=== PATIENT | male | born 1990 | race Asian ===

== ENCOUNTER 2019-11-01 12:45 | Emergency (ER) | payer MEDICAID ==
[~2019-11-01] VITALS: Ht 170.2 cm; Wt 77.0 kg
[2019-11-01] MEDS ORDERED: ACETAMINOPHEN 325MG TABLET PO STA (13:26)
[2019-11-01] MEDS ORDERED: SODIUM CHLORIDE 0.9% 1,000 ML IV ONE (13:26)
[2019-11-01] MEDS ORDERED: KETOROLAC 30MG/ML VIAL IV STA (13:26)
[2019-11-01 14:08] LABS: BASOPHILS % 0.5 % (0.0-2.0); EOSINOPHILS % 0.6 % (0.0-5.0); LYMPHOCYTES % 22.6 % (20.0-50.0); MEAN CORPUSCULAR HEMOGLOBIN 29.4 pg (28.0-32.0); MEAN CORPUSCULAR VOLUME 86.1 fL (80.0-94.0); MEAN PLATELET VOLUME 6.4 fl (7.4-10.4); MONOCYTES % 7.2 % (2.0-8.0); NEUTROPHILS % 69.1 % (40.0-76.0); PLATELET 226 x1000/uL (130-400); RED BLOOD CELL COUNT 4.42 mill/uL (4.7-6.1); RED CELL DISTRIBUTION WIDTH 12.9 % (11.6-14.6)
[2019-11-01 14:15] LABS: CHLORIDE 108 mEq/L (98-107)
[2019-11-01] MEDS ORDERED: IOHEXOL-300 100 ML BOTTLE ONE (14:48)
[2019-11-01] MEDS ORDERED: DOXYCYCLINE HYCLATE 100MG CAPSULE PO ONE (15:30)
[2019-11-01] MEDS ORDERED: CEFTRIAXONE SODIUM 250 MG/VIAL IM ONE (15:30)
[2019-11-01 16:11] LABS: CLARITY URINE CLEAR (CLEAR); COLOR URINE YELLOW (YELLOW); KETONES URINE NEGATIVE (NEGATIVE); LEUKOCYTE ESTERASE URINE NEGATIVE (NEGATIVE); NITRITE URINE NEGATIVE (NEGATIVE); OCCULT BLOOD URINE NEGATIVE (NEGATIVE); PH URINE 6.5 (4.5-8.0); PROTEIN URINE NEGATIVE (NEGATIVE); SPECIFIC GRAVITY URINE 1.042 (1.005-1.030)
[2019-11-01 16:35] VITALS: BP 121/85
[2019-11-04 04:07] LABS: NEISSERIA GONORRHOEAE NAA Negative (Negative)
[2019-11-06 04:10] LABS: *HIV-1 RNA BY PCR 181560 copies/mL (.)
== END 2019-11-01 16:40 | disposition home or self-care (01) ==
LOC: ER 13:03
DX: K62.89 Other specified diseases of anus and rectum (principal)
CPT/HCPCS: 36415; 74177; 80053; 81003; 85025; 87491; 87536; 87591; 96372; 96374; 99285; J0696; J1885; J7030; Q9967; 99284

== ENCOUNTER 2023-01-28 12:34 | Emergency (ER) | payer MEDICAID ==
[~2023-01-28] VITALS: Ht 167.6 cm; Wt 86.4 kg
[2023-01-28 12:55] VITALS: TEMP 99; O2SAT 97
[2023-01-28] MEDS ORDERED: AMOX-494 MT (13:42)
[2023-01-28 13:45] VITALS: BP 145/98; PULSE 117; RESP 18
[2023-01-28] MEDS ORDERED: IBUPROFEN 600MG TABLET PO ONE (13:45)
== END 2023-01-28 13:55 | disposition home or self-care (01) ==
LOC: ER 12:34
DX: L03.115 Cellulitis of right lower limb (principal); J02.9 Acute pharyngitis, unspecified; I25.2 Old myocardial infarction; Z98.890 Other specified postprocedural states
CPT/HCPCS: 87070; 87430; 99283